=== PATIENT | female | born 1980 | race Asian ===

== ENCOUNTER 2017-09-28 10:38 | Day surgery (SDC) | payer BC ==
[2017-09-27 11:53] LABS: BASOPHILS % (AUTO) 0.7 % (0-1); EOSINOPHILS # (AUTO) 0.1 X10'3 (0-0.9); EOSINOPHILS % (AUTO) 1.4 % (0-6); LYMPHOCYTES # (AUTO) 1.9 X10'3 (1.1-4.8); LYMPHOCYTES % (AUTO) 29.4 % (21-51); MEAN CORPUSCULAR HEMOGLOBIN 25.2 PG (27.0-31.0); MEAN CORPUSCULAR HGB CONC 33.2 % (33.0-36.5); MEAN CORPUSCULAR VOLUME 75.8 FL (78-98); MEAN PLATELET VOLUME 9.2 FL (7.4-10.4); MONOCYTES # (AUTO) 0.4 X10'3 (0-0.9); MONOCYTES % (AUTO) 5.8 % (2-12); NEUTROPHILS % (AUTO) 62.7 % (42-75); PRE OP HEMATOCRIT 38.7 % (35.0-45.0); PRE OP HEMOGLOBIN 12.8 g/dL (12.0-16.0); PRE OP PLATELET COUNT 251 X10'3 (140-440); RED CELL DISTRIBUTION WIDTH 13.5 % (11.5-14.5)
[2017-09-27 11:57] LABS: CLARITY,URINE CLEAR (Clear); COLOR,URINE YELLOW (Yellow); GLUCOSE, URINE NEGATIVE (Neg); KETONES,URINE NEGATIVE (Neg); LEUKOCYTE ESTERASE ,URINE NEGATIVE (Neg); NITRITES, URINE NEGATIVE (Neg); OCCULT BLOOD,URINE NEGATIVE (Neg); PROTEIN,URINE NEGATIVE (Neg); UA COLLECTION TYPE CLN CATCH MIDSTREAM; UROBILINOGEN,URINE 0.2 E.U/dL (0.2-1.0)
[2017-09-27 12:07] LABS: HCG SERUM QL NEGATIVE
[2017-09-27 12:10] LABS: ALBUMIN 3.9 G/DL (3.4-5.0); ALKALINE PHOSPHATASE 69 IU/L (46-116); BLOOD UREA NITROGEN 13 MG/DL (7-18); BUN/CREATININE RATIO 21.7 (6.6-38.0); CALCIUM 8.9 MG/DL (8.5-10.1); CHLORIDE 104 MMOL/L (99-107); PRE OP ALT 33 U/L (30-65); PRE OP ANION GAP 9 (8-16); PRE OP AST 22 U/L (10-37); PRE OP BILIRUB, TOTAL 0.9 MG/DL (0.0-1.0); PRE OP GLUCOSE 89 MG/DL (70-104); PRE OP SODIUM 140 MMOL/L (135-145); TOTAL CARBON DIOXIDE 26.6 MMOL/L (24-32); TOTAL PROTEIN 7.9 G/DL (6.4-8.2); eGFR > 90 ML/MIN
[2017-09-27 12:12] LABS: PRE OP POTASSIUM 3.2 MMOL/L (3.4-5.1)
[2017-09-28] VITALS (7 sets, daily range): BP systolic 106–129; BP diastolic 68–85
[~2017-09-28] VITALS: Ht 154.9 cm; Wt 56.7 kg
[~2017-09-28 10:38] MED LIST: LACT1CAP65 PO; PREN1TAB79 PO; ceFOXitin inj 1,000 MG in normal saline 100ml IV soln 100 ML IV ONE; famotidine 20mg tablet PO ONE; ringers solution, lacted 1,000 ML IV SCH
[2017-09-28] MEDS ORDERED: epiNEPHrine 1 mg/ml inj ONE (11:03)
[2017-09-28] MEDS ORDERED: BUPIVAcaine/PF 2.5 mg/ml (0.25%) 30ml vial ONE ×2 (11:04)
[2017-09-28] MEDS ORDERED: BUPIVAcaine 0.5% inj/PF 0 ML ONE (11:05)
[2017-09-28 12:05] LABS: ALBUMIN 3.9 G/DL (3.4-5.0); ANION GAP 11 (8-16); BLOOD UREA NITROGEN 10 MG/DL (7-18); BUN/CREATININE RATIO 16.7 (6.6-38.0); CHLORIDE 104 MMOL/L (99-107); GLUCOSE 89 MG/DL (70-104); SODIUM 140 MMOL/L (135-145); TOTAL CARBON DIOXIDE 25.5 MMOL/L (24-32); eGFR > 90 ML/MIN
[2017-09-28 12:12] LABS: POTASSIUM 3.8 MMOL/L (3.5-5.1)
[2017-09-28] MEDS ORDERED: sevoflurane 250ml liquid IH ONE (12:52)
[2017-09-28] MEDS ORDERED: midazolam 2 mg/2 ml injection ONE (13:00)
[2017-09-28] MEDS ORDERED: fentaNYL/PF 50MCG/1 ML 2ML syringe ONE (13:00)
[2017-09-28] MEDS: BUPIVAcaine/PF 2.5 mg/ml (0.25%) 30ml vial ONE ×2 (13:29→13:30)
[2017-09-28] MEDS ORDERED: ringers solution, lacted 1,000 ML IV SCH (13:32)
[2017-09-28] MEDS ORDERED: proCHLORperazine 10 MG/2 ml inj IV PRN (13:35)
[2017-09-28] MEDS ORDERED: ondansetron/PF 4mg/2ml inj IV PRN (13:35)
[2017-09-28] MEDS ORDERED: meperidine/PF 25mg/ml syringe IV PRN ×3 (13:35)
[2017-09-28] MEDS ORDERED: LIDOcaine 2% (20mg/ml) 5ml vial ONE (14:03)
[2017-09-28] MEDS ORDERED: neostigmine methylsulfate 1 MG/ML 10ml vial ONE (14:03)
[2017-09-28] MEDS ORDERED: propofol inj 20 ML IV ONE (14:03)
[2017-09-28] MEDS ORDERED: glycopyrrolate 0.2mg/ml inj ONE (14:03)
[2017-09-28] MEDS ORDERED: rocuronium 10mg/ml inj IV ONE (14:03)
[2017-09-28] MEDS ORDERED: dexamethasone sod phosphate 4mg/ml inj. ONE (14:03)
[2017-09-28] MEDS ORDERED: ondansetron/PF 4mg/2ml inj ONE (14:03)
== END 2017-09-28 13:47 | disposition home or self-care (01) ==
LOC: PAS 10:38
PROVIDERS: ATTEND Obstetrics & Gynecology Obstetrics
DX: Z30.2 Encounter for sterilization (principal); D28.2 Benign neoplasm of uterine tubes and ligaments; Z90.49 Acquired absence of other specified parts of digestive tract; Z98.890 Other specified postprocedural states; Z79.82 Long term (current) use of aspirin; Z72.89 Other problems related to lifestyle; Z79.899 Other long term (current) drug therapy
CPT/HCPCS: 36415; 58661; 80048; 80053; 81003; 84703; 85025; 86885; 86900; 86901; J0171; J0694; J1100; J2001; J2250; J2405; J2704; J2710; J3010; J3490; J7030; A7000; J7120